=== PATIENT | male | born 2000 | race Two or more races ===

== ENCOUNTER 2021-02-03 16:10 | Emergency (ER) | payer OTHER ==
[2021-02-03 16:24] VITALS: BP 140/77
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
--- NOTE | 2021-02-03 17:19 | XRAY Report ---
PROCEDURE: Lumbar Spine 2 View INDICATIONS: back injury TECHNIQUE: 2 views of the lumbar spine were acquired. COMPARISON: None. FINDINGS: Bones: 5 [id number] vertebrae are present. There is normal bony alignment. No vertebral body compression fractures. No suspicious bony lesions. Mild facet arthropathy of the lumbosacral juncti on. Acute angulation of the coccyx. Soft tissues: Overlying bowel gas pattern is normal. No suspicious soft tissue calcifications. IMPRESSION: No acute osseous abnormality. Reviewed by: Luis Thomas DO on 02/03/2021 4:18 PM DEYANIRA Approved by: Luis Thomas DO on 02/03/2021 4:18 PM DEYANIRA Station ID: [id number]
== END 2021-02-03 17:34 | disposition home or self-care (01) ==
LOC: EDBD → ED 16:10
DX: S39.012A Strain of muscle, fascia and tendon of lower back, initial encounter (principal); V48.5XXA Car driver injured in noncollision transport accident in traffic accident, initial encounter; Y93.89 Activity, other specified; Y92.410 Unspecified street and highway as the place of occurrence of the external cause
CPT/HCPCS: 99282; 99283

== ENCOUNTER 2022-01-20 15:21 | Outpatient (CLI) | payer OTHER ==
[2022-01-20 16:24] VITALS: BP 110/80
--- NOTE | 2022-01-20 16:24 | SLEEP CARE CONSULTATION ---
Information from patient questionnaire entered by Maine Velazco. I have reviewed and concur with the information entered by Maine Velazco. This document represents the service I personally performed and the decisions made by me, Lilly Ross MD, [facility]. History of Present Illness Service Date and Time: 01/20/2022 1521 Reason for Visit: New patient Chief Complaint: reports: Insomnia, Unrefreshed sleep, Snoring, Excessive daytime sleepiness, Observed pauses in breathing, Fatigue, Frequent awakenings at night Date of Onset: NOTICED 7 MONTHS BY COWORKER Usual bedtime: WORK TILL AM, SLEEP AT 8AM Time it takes to fall asleep: DEPENDS ON HOW PT FEELS THAT DAY Snores at night: Yes Observed to quit breathing while asleep: Yes Sleeps alone due to snoring: No Number of times waking at night: 3 Reasons for waking at night: reports: Snoring, Gasping for air, Bathroom Toss, Turn, or Twitch while sleeping: No Recalls having dreams: No Usually gets out of bed at: 2PM Feels refreshed in the morning: No Morning headache: Yes (RESOLVES BY A COUPLE OF HOURS ) Sleepy or fatigued during the day: Yes Ever fallen asleep while driving: No Takes day naps: Yes Dreams during day naps: No Prior sleep studies: No Additional HPI information: I had the pleasure of seeing Mr. Juarez today regarding the possibility of him having a sleep disorder. As you know, he is a 21-year-old gentleman who compl ains of loud snore, observed apneas, frequent awakenings, unrefreshed sleep, and excessive daytime sleepiness for the past 7 months. The patient sleeps during the day because he works nightshift. He has been told that he snores loudly and irregularly at night. He has also been observed to stop breathing in his sleep. He can recall waking up on the average of 3 times during the night. Most of the time he wakes up because of having to use the bathroom. He has awakened occasionally because of his own snoring, choking, and having to gasp for air. There is not a lot of tossing and turning in his sleep. No somniloquy (sleep talking) or somnambulism (sleep walking). He usually has a morning headache. During the day he complains of feeling sleepy and fatigued. His score on [place] Sleepiness Scale is 7 out of 24. He never has fallen asleep while driving nor has had any accident due to sleepiness. - Parasomnia Symptoms Ever been unable to move upon waking from sleep: No Walks in sleep: No Talks in sleep: No Ever acted out dreams in sleep: No Ever felt weak in the knees when startled or emotional: No Bothered by creepy, crawly, restless sensations in legs: No Problems with memory or concentration: Yes Subjective Initial [place] Sleepiness Scale score: 7 (12/25/21) Past Medical History Past Medical History: reports: Hypertension Social History The patient's occupation is a AM. Patient is Single and lives in . Have you smoked in the past 12 months: No Alcohol use: Yes Alcohol amount and frequency: 3 DRINKS ON THE WEEKENDS Caffeine use: Yes Caffeine amount and frequency: 1 EVERY DAY Family History Family history of sleep disordered breathing: No Allergies and Home Medications Drug allergies reviewed: Yes Home medication list reviewed: Yes Allergy and home medication list: Allergies No Known Drug Allergies Allergy (Verified 02/03/21 16:24) Review of Systems Cardiovascular: reports: high blood pressure, leg or foot swelling Respiratory: denies: shortness of breath, wheeze, sputum production, chronic cough, other Gastrointestinal: denies: heartburn, difficulty swallowing, nausea, vomitting, diarrhea, abdominal pain, other Urinary: reports: frequency Neurological: reports: headaches, disorientation Psychiatric: denies: Attention Deficit Hyperactivity, anxiety, depression, mood disorder, claustrophobia, other Ear/Nose/Throat: reports: dry mouth/throat Endocrine: reports: sluggishness, increased appetite, increased urination, unexplained weakness Musculoskeletal: reports: joint pain, back pain, muscle pain or cramping Immunologic: denies: sneezing, rash, itching, allergies to food or environment, other Physical Exam Vital signs obtained and entered by: BHARATI POLANCO Blood Pressure: 110/80 (left arm ) Cuff size: regular Heart Rate: 94 O2 Saturation: 97 Height: 5 ft 10 in Weight: 199 lb Body Mass Index: 28.5 BMI Classification: Overweight Neck circumference: 16 (inches ) Mood/affect: normal HEENT: No craniofacial malformation Nostrils: partially obstructed (left) Turbinates: normal Septum: deviated left Mouth and throat: narrow oropharynx Soft palate: long Hard palate: normal Uvula: normal Uvula visualization: 25% Mallampati Class III Tongue: enlarged in size with teeth camargo on lateral edges Tonsils: small Chin and jaw: normal size and position Neck: normal w/o lymphadenopathy or thyromegaly Heart: regular rate and rhythm Lungs: clear bilaterally Extremities: no edema or clubbing Neurologic: intact Impression and Plan Visit Type: In Office Provider Statement: I spent 100% of the Face to Face Visit with the patient with greater than 50% spent counseling the patient and coordination of care.
== END 2022-01-20 15:22 | disposition home or self-care (01) ==
LOC: SC 15:21
PROVIDERS: ATTEND Internal Medicine Pulmonary Disease
DX: R06.83 Snoring (principal); G47.8 Other sleep disorders; R06.81 Apnea, not elsewhere classified; R51.9 Headache, unspecified; G47.10 Hypersomnia, unspecified; R53.83 Other fatigue; E66.3 Overweight; Z68.28 Body mass index [BMI] 28.0-28.9, adult
CPT/HCPCS: 99202; 99212

== ENCOUNTER 2022-02-05 20:30 | Outpatient (CLI) | payer OTHER | END 2022-02-05 20:31 | disposition home or self-care (01) | LOC: SC 20:30 | PROVIDERS: ATTEND Internal Medicine Pulmonary Disease | DX: G47.33 Obstructive sleep apnea (adult) (pediatric) (principal) | CPT/HCPCS: 95810 ==

== ENCOUNTER 2022-02-28 10:26 | Outpatient (CLI) | payer OTHER ==
--- NOTE | 2022-02-28 09:47 | SLEEP CARE CONSULTATION ---
Information from patient questionnaire entered by Marisela Redmond. I have reviewed and concur with the information entered by Marisela Redmond. This document represents the service I personally performed and the decisions made by me, Elma Waters ARNP. History of Present Illness Service Date and Time: 02/28/2022 0940 Initial [place] Sleepiness Scale score: 7 (12/25/21) Current [place] Sleepiness Scale score: 4 (02/28/2022) Additional HPI information: HERSON LEDEZMA returns via video telehealth visit for follow up and results of the recently performed polysomnography. I explained the pathophysiology behind obstructive sleep apnea. We then spent quite a bit of time discussing different treatment options. For mild obstructive sleep apnea, surgery and oral appliance are alternatives to nasal CPAP therapy but in moderate or severe cases, nasal CPAP is the most effective and reliable treatment. Because apnea is primarily in supine position, then positional management therapy could be effective. Methods discussed such as positioning with pillows to prevent supine sleep. I reviewed the impact of weight changes on sleep apnea and strongly recommended losing weight. After some discussion, the patient opted to go with the nasal CPAP therapy. Nasal autoCPAP set at 4-15 cmH20 will be ordered with rationale explained. A manual titration study will be ordered if unable to find optimal pressure with office adjustments. I explained how CPAP machine works and what to expect when using the machine. Using CPAP every night in order to get used to it was emphasized. Patient advised to put CPAP mask on before getting into bed so as not to fall asleep without CPAP. To assist acclimation to CPAP use, it could also be used for a short time during day while reading or watching TV. The patient was instructed to call the CPAP supplier to discuss any mechanical problem that may occur. If the mask given is uncomfortable or is difficult to keep on through the night even with adjustment, contact the CPAP supplier as many will replace with another mask style if notified before 30 days. If snoring or perceives is not getting enough air or too much air from the machine, notify this office. Patient counseled not drink alcohol less than 4 hours before bedtime as it can increase snoring and apnea. Patient was cautioned about risks of drowsy driving until sleepiness symptoms resolve. Sleep Study - Results Type of Sleep Study: Polysomnography (COMPLETED 02/05/2022) Prior sleep studies: No Polysomnography/Home Sleep Study results: IMPRESSION: The quality of the study is good. The patient had normal sleep efficiency. The sleep architecture was abnormal for sleep fragmentation and reduced amount of time spent in slow wave sleep (N3). Respiratory monitoring showed very severe obstructive sleep apnea-hypopnea (AHI = 73.7) associated with frequent arousals, oxyhemoglobin desaturation and moderate hypoxia (susi oxygen saturation of 77% ). Baseline oxygen saturation was normal. The respiratory events occurred more frequently during supine sleep (supine AHI = 88.1; non-supine = 26.09). Snore was moderate to loud in intensity. There was no significant periodic leg movement of sleep. Cardiac rhythm was normal sinus rhythm without significant arrhythmia. No abnormal behavior (parasomnia) observed during the night. Allergies and Home Medications Drug allergies reviewed: Yes (NKDA) Home medication list reviewed: Yes (no changes) Review of Systems Review of systems same as previous: Yes (no changes) Physical Exam Vital signs obtained and entered by: VIA PHONE Height: 5 ft 10 in (PER PT) Weight: 198 lb (PER PT) Body Mass Index: 28.4 BMI Classification: Overweight Impression and Plan 1. Obstructive Sleep Apnea-Hypopnea Syndrome, very severe, with lowest oxygen saturation of 77%. Obviously this is the cause of the patients symptoms of unrefreshed sleep, and excessive daytime sleepiness. Positive pressure therapy could benefit hypertension. As mentioned above, the patient will be started on nasal autoCPAP therapy with pressure set at 4-15 cmH2O. Compliance guidelines also reviewed. A copy of compliance guidelines will be given for reference at check out. Because the apnea is more severe supine, I instructed to avoid sleeping supine using pillow positioning until able to start CPAP use. 2. Hypoxemia, moderate, with a susi oxygen saturation of 77% and 44.1 minutes spent under 90%. His baseline oxygen saturation was normal with an average oxygen saturation of 93%. 3. Overweight, unspecified. Currently patients BMI is 28.4. Obesity increases the risk of apnea, CPAP pressure requirements and overall health risks especially cardiovascular and diabetes. Thus patient is advised to continue to try to lose weight. * Nasal auto CPAP therapy, pressure at 4-15 cm H2O. * Attempt to lose weight. * Avoid alcohol consumption near bedtime. * Avoid supine sleep until using CPAP. * The patient is again cautioned about driving until sleepiness completely resolves. * Return one month after CPAP obtained. I will assess response to therapy and compliance at that time. Counseling Topics: Weight loss health impact Visit Type: Telehealth Video Video Type: Doximity Patient Location: Home Location of Provider: Office Patient agrees and consents to this telehealth visit type: Yes Patient agrees to have their insurance billed: Yes Time Spent with Patient (minutes): 20 Provider Statement: I spent 100% of the Telehealth Video Call with the patient with greater than 50% spent counseling the patient and coordination of care.
== END 2022-02-28 10:27 | disposition home or self-care (01) ==
LOC: SC 10:26
PROVIDERS: ATTEND Nurse Practitioner Family
DX: G47.33 Obstructive sleep apnea (adult) (pediatric) (principal); R09.02 Hypoxemia; E66.3 Overweight; Z68.28 Body mass index [BMI] 28.0-28.9, adult

== ENCOUNTER 2023-01-07 14:28 | Outpatient (CLI) | payer OTHER ==
--- NOTE | 2023-01-07 15:12 | Sleep Patient Instructions ---
Sleep Center Visit Summary - Patient Visit Information Reason for Visit: First compliance for PAP therapy - Patient Instructions Additional Instructions: You were here for follow up of CPAP therapy. You will be continued on CPAP therapy with pressure at 12-14 cmH2O. Please let us know if the pressure change is uncomfortable and we can make further adjustments of the pressure. A prescription to update your supplies was completed and will be faxed to your supplier. You should follow up with sleep care in 1-2 months. You may contact us sooner for any questions or concerns. - Clinic Information Contact: [facility] [address] [place] [address] [email or web address] T: [phone]
--- NOTE | 2023-01-07 15:19 | SLEEP CARE CONSULTATION ---
Information from patient questionnaire entered by Marisela Redmond. I have reviewed and concur with the information entered by Marisela Redmond. This document represents the service I personally performed and the decisions made by , Elma Waters ARNP. History of Present Illness Service Date and Time: 01/07/2023 1428 Previous diagnosis: Very Severe, Obstructive Sleep Apnea-Hypopnea Syndrome AHI: 73.7 (2021) Reason for follow up: first compliance Accompanied by: Partner Equipment type: CPAP (RESMED Airsense 11, s/u 02/2022) Equipment obtained from: [facility] (has not got more supplies) Mask style: Nasal Backup mask available: No (will need to keep old mask when replaced) Last cushion change: has never changed cushion since Feb 2022 Prior sleep studies: No Type of Sleep Study: Polysomnography (COMPLETED 02/05/2022) HPI additional information: HERSON LEDEZMA was diagnosed to have very severe, AHI 73.7, obstructive sleep apnea-hypopnea syndrome and returned today for CPAP therapy first compliance follow-up. Sleep Study - Results Type of Sleep Study: Polysomnography (COMPLETED 02/05/2022) Prior sleep studies: No CPAP Compliance Data - Data Reviewed with Patient Average duration of nightly device use: 5.6 Compliance rate %: 69 (274/301 days used in last year) Current pressure setting (cmH2O): 12 Average residual AHI: 3.4 Central apnea: 1.8 Obstructive apnea: 1 Average large leak: 32 L/min Compliance data discussion: Initial compliance in 03/2022. 14/15 days used with 5 hours 33 minutes average nightly use. His pressure was set at 10 cmH2O. His residual AHI was 3.9. His average large leaks were 7.4 L/min. Subjective Patient concerns: reports: nasal congestion, dry mouth, nose, throat (dry mouth). denies: aerophagia, mask discomfort, air blowing in eyes, mask leak noise, condensation in mask/hose, epistaxis Observed to snore while using device: No Current pressure setting perceived as: comfortable On therapy, patient: reports: sleeping better, awakening more refreshed, being more awake and alert during the day, more rested overall. denies: drowsiness while driving Initial [place] Sleepiness Scale score: 7 (12/25/21) Current [place] Sleepiness Scale score: 2 (01/07/23) Allergies and Home Medications Known drug allergies: No Drug allergies reviewed: Yes Home medication list reviewed: Yes (no changes) Allergy and home medication list: Allergies No Known Drug Allergies Allergy (Verified 01/06/23 14:09) Review of Systems Review of systems same as previous: Yes (N/A) Physical Exam Vital signs obtained and entered by: MARISELA Spencer MA Blood Pressure: 126/72 (LEFT ARM) Cuff size: regular Heart Rate: 78 O2 Saturation: 98 Height: 5 ft 10 in (PER PT) Weight: 204 lb 3.2 oz Body Mass Index: 29.2 BMI Classification: Overweight Impression and Plan 1. Obstructive Sleep Apnea-Hypopnea Syndrome, very severe, with good treatment compliance and good apnea control. On CPAP therapy, the patient has better sleep quality and is more rested overall. Patient changed his pressure on his own but from the information I was able to obtain from his machine his best pressure setting is 12-14 cm H2O. I will adjust his pressure to this at this time. I also asked patient not to change his prescribed pressure. He voiced agreement. Patient's apnea severity and rationale for treatment to reduce apnea, improve sleep quality and reduce cardiovascular and cerebrovascular events was reviewed. I also reviewed the benefit of consistent device use of CPAP for hypertension. 2. Overweight, unspecified. Currently patients BMI is 29.2. Obesity increases the risk of apnea, CPAP pressure requirements and overall health risks especially cardiovascular and diabetes. Thus patient is advised to lose weight. * Change auto CPAP pressure to 12-14 cmH2O * Update supplies * Notify me if snoring with mask or feeling that the pressure is too much or too little * Attempt to lose weight * Call this office if any problems using CPAP * Return for follow up in 1-2 months, or sooner if concerns arise Counseling Topics: Spare mask, Weight loss health impact Follow up with Sleep Care in: 1-2 months Visit Type: In Office Time Spent with Patient (minutes): 22 Provider Statement: I spent 100% of the Face to Face Visit with the patient with greater than 50% spent counseling the patient and coordination of care.
[2023-01-07 16:01] VITALS: BP 126/72; O2SAT 98
== END 2023-01-07 14:29 | disposition home or self-care (01) ==
LOC: SC 14:28
PROVIDERS: ATTEND Nurse Practitioner Family
DX: G47.33 Obstructive sleep apnea (adult) (pediatric) (principal); E66.3 Overweight; Z68.29 Body mass index [BMI] 29.0-29.9, adult
CPT/HCPCS: 99212; 99213